=== PATIENT | male | born 1995 | race Caucasian/White ===

== ENCOUNTER 2019-10-22 00:25 | Emergency (ER) | payer OTHER ==
[2019-10-22 00:32] VITALS: TEMP 98.6; BMI 24.2
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
[2019-10-22] MEDS ORDERED: DIPHTH,PERTUSS(ACELL),TET 0.5 ML DISP.SYRIN IM ONE ×2 (02:07→02:15)
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
[2019-10-22] MEDS ORDERED: IBUPROFEN 600 MG TABLET (FP) PO ONE ×2 (02:20→02:34)
[2019-10-22] MEDS ORDERED: CYCLOBENZAPRINE HCL 10 MG TABLET (FP) PO ONE (02:20)
[2019-10-22] MEDS ORDERED: LIDOCAINE 5% TOPICAL PATCH TP ONE (02:21)
[2019-10-22] MEDS ORDERED: CYCLOBENZAPRINE HCL 10 MG TABLET (FP) ONE (02:34)
[2019-10-22] MEDS ORDERED: LIDOCAINE 5% TOPICAL PATCH ONE (02:34)
[2019-10-22 05:26] VITALS: BP 123/65; PULSE 70
[2019-10-22] MEDS ORDERED: LIDOCAINE PATCH REMOVAL MC SCH (22:00)
== END 2019-10-22 05:25 | disposition home or self-care (01) ==
LOC: JER 00:25
PROC: 0HQ0XZZ Repair Scalp Skin, External Approach (ICD-10-PCS; principal; 2019-10-22)
PROC: 3E0234Z Introduction of Serum, Toxoid and Vaccine into Muscle, Percutaneous Approach (ICD-10-PCS; 2019-10-22)
DX: S01.91XA Laceration without foreign body of unspecified part of head, initial encounter (principal); M25.561 Pain in right knee
CPT/HCPCS: 70450-TC; 70486-TC; 72125-TC; 73560-TC-RT-FY; 90715; 99285-25